=== PATIENT | female | born 1945 | race Caucasian/White ===

== ENCOUNTER → 2020-04-26 | Outpatient (CLI) | payer MEDICARE | LOC: SJCVC 11:39 | PROVIDERS: ATTEND Internal Medicine | DX: R94.31 Abnormal electrocardiogram [ECG] [EKG] (principal); I44.7 Left bundle-branch block, unspecified; R00.1 Bradycardia, unspecified; I11.0 Hypertensive heart disease with heart failure; I50.32 Chronic diastolic (congestive) heart failure; I35.8 Other nonrheumatic aortic valve disorders; E78.5 Hyperlipidemia, unspecified; R73.03 Prediabetes; G47.33 Obstructive sleep apnea (adult) (pediatric); Z90.49 Acquired absence of other specified parts of digestive tract; Z79.899 Other long term (current) drug therapy; Z87.891 Personal history of nicotine dependence ==